=== PATIENT | female | born 1975 | race Two or more races ===

== ENCOUNTER 2021-11-02 01:25 | Emergency (ER) | payer OTHER ==
[2021-11-02 01:43] VITALS: BP 92/40; PULSE 89; TEMP 98.8; BMI 26.4
[2021-11-02] MEDS ORDERED: DIPHTH,PERTUSS(ACELL),TET 0.5 ML DISP.SYRIN IM ONE ×2 (01:54→02:02)
== END 2021-11-02 02:07 | disposition home or self-care (01) ==
LOC: FER 01:25
PROC: 0HQ1XZZ Repair Face Skin, External Approach (ICD-10-PCS; principal; 2021-11-02)
PROC: 3E0234Z Introduction of Serum, Toxoid and Vaccine into Muscle, Percutaneous Approach (ICD-10-PCS; 2021-11-02)
DX: S01.81XA Laceration without foreign body of other part of head, initial encounter (principal); W22.8XXA Striking against or struck by other objects, initial encounter
CPT/HCPCS: 90715; 99282-25